=== PATIENT | female | born 1935 | race Caucasian/White ===

== ENCOUNTER 2019-02-10 08:52 | Day surgery (SDC) | payer MEDICARE ==
[~2019-02-10] VITALS: Ht 167.6 cm; Wt 52.5 kg
[2019-02-10] VITALS (13 sets, daily range): BP systolic 142–190; BP diastolic 62–109
[~2019-02-10 08:52] MED LIST: GUAI120015 PO
[2019-02-10] MEDS ORDERED: diphenhydrAMINE 25mg capsule PO PRN (09:25)
[2019-02-10] MEDS ORDERED: normal saline 1,000 ML IV SCH (09:25)
[2019-02-10] MEDS ORDERED: NITR0.4T48 SL (09:29)
[2019-02-10] MEDS ORDERED: CLOP75TA15 PO (09:29)
[2019-02-10] MEDS ORDERED: ASPI-1265 PO (09:29)
[2019-02-10] MEDS ORDERED: METF500T PO (09:29)
[2019-02-10] MEDS ORDERED: LISI-600 PO (09:31)
[2019-02-10] MEDS ORDERED: PRAV40TA3 PO (09:31)
[2019-02-10] MEDS ORDERED: HYDR12.5 PO (09:31)
[2019-02-10 10:15] LABS: BASOPHILS # (AUTO) 0.1 X10'3 (0-0.2); BASOPHILS % (AUTO) 1.2 % (0-1); EOSINOPHILS # (AUTO) 0.3 X10'3 (0-0.9); EOSINOPHILS % (AUTO) 4.2 % (0-6); HEMOGLOBIN 13.9 g/dl (12.0-16.0); LYMPHOCYTES # (AUTO) 1.6 X10'3 (1.1-4.8); LYMPHOCYTES % (AUTO) 21.6 % (21-51); MEAN CORPUSCULAR HEMOGLOBIN 31.2 PG (27.0-31.0); MEAN CORPUSCULAR VOLUME 91.8 FL (78-98); MEAN PLATELET VOLUME 7.4 FL (7.4-10.4); MONOCYTES # (AUTO) 0.6 X10'3 (0-0.9); MONOCYTES % (AUTO) 8.3 % (2-12); NEUTROPHILS # (AUTO) 4.8 X10'3 (1.8-7.7); NEUTROPHILS % (AUTO) 64.7 % (42-75); PLATELET COUNT 369 X10'3 (140-440); RED BLOOD COUNT 4.47 X10'6 (4.20-5.60); RED CELL DISTRIBUTION WIDTH 13.1 % (11.5-14.5); WHITE BLOOD COUNT 7.5 X10'3 (4.5-11.0)
[2019-02-10 10:24] LABS: ALBUMIN 4.2 G/DL (3.4-5.0); ANION GAP 9 (8-16); BLOOD UREA NITROGEN 14 MG/DL (7-18); BUN/CREATININE RATIO 18.7 (6.6-38.0); CALCIUM 9.3 MG/DL (8.5-10.1); CHLORIDE 102 MMOL/L (99-107); CREATININE 0.75 MG/DL (0.40-0.90); GLUCOSE 130 MG/DL (70-104); POTASSIUM 3.9 MMOL/L (3.5-5.1); SODIUM 140 MMOL/L (135-145); eGFR 74 ML/MIN
[2019-02-10] MEDS ORDERED: LIDOcaine 1% (10mg/ml)w/preservative injection 20ml MDV ONE (11:36)
[2019-02-10] MEDS ORDERED: midazolam 2 mg/2 ml injection ONE ×2 (11:36→12:53)
[2019-02-10] MEDS ORDERED: iohexol 350MG/ML 100ml bottle IV ONE (11:36)
[2019-02-10] MEDS ORDERED: iohexol 350 MG/ML 50ML vial IV ONE (11:36)
[2019-02-10] MEDS ORDERED: fentaNYL/PF 50MCG/1 ML 2ML syringe ONE (11:36)
[2019-02-10] MEDS ORDERED: heparin 1,000unit/ml 10ml vial 10 ML ONE (12:33)
[2019-02-10] MEDS ORDERED: iohexol 350 MG/1 ML 200ml bottle ONE (12:35)
[2019-02-10] MEDS ORDERED: nitroGLYCERIN-Tridil 50MG/D5W 250 ML IV ONE (12:41)
[2019-02-10] MEDS ORDERED: clopidogrel 300mg tablet ONE (12:54)
[2019-02-10] MEDS ORDERED: proCHLORperazine 10 MG/2 ml inj IV PRN (13:30)
[2019-02-10] MEDS ORDERED: OXAZEpam 15mg capsule PO PRN (13:30)
[2019-02-10] MEDS ORDERED: HYDROcodone/acetaminophen 10/325mg tab PO PRN (13:30)
[2019-02-10] MEDS ORDERED: ondansetron/PF 4mg/2ml inj IV PRN (13:30)
[2019-02-10] MEDS ORDERED: HYDROcodone/acetaminophen 5mg/325mg tablet PO PRN (13:30)
== END 2019-02-10 18:15 | disposition home or self-care (01) ==
LOC: SSTAY O 08:52
PROVIDERS: ATTEND Internal Medicine Cardiovascular Disease
DX: T82.868A Thrombosis due to vascular prosthetic devices, implants and grafts, initial encounter (principal); I25.118 Atherosclerotic heart disease of native coronary artery with other forms of angina pectoris; I25.82 Chronic total occlusion of coronary artery; I10 Essential (primary) hypertension; E78.5 Hyperlipidemia, unspecified; E11.9 Type 2 diabetes mellitus without complications; J45.909 Unspecified asthma, uncomplicated; M19.90 Unspecified osteoarthritis, unspecified site; Z90.49 Acquired absence of other specified parts of digestive tract; Z98.890 Other specified postprocedural states; Z90.710 Acquired absence of both cervix and uterus; Z79.01 Long term (current) use of anticoagulants; Z79.84 Long term (current) use of oral hypoglycemic drugs; Z79.899 Other long term (current) drug therapy; Z88.0 Allergy status to penicillin; Z88.8 Allergy status to other drugs, medicaments and biological substances; Y83.8 Other surgical procedures as the cause of abnormal reaction of the patient, or of later complication, without mention of misadventure at the time of the procedure; Y92.89 Other specified places as the place of occurrence of the external cause
CPT/HCPCS: 36415; 80048; 83735; 85025; 85610; 93005; 93459; 99152; 99153; C1725; C1760; C1769; C1874; C1894; C9600; C9601; J1644; J2001; J2250; J3010; J7030; Q0163; Q9967; A4620; A6258; J3490

== ENCOUNTER 2023-10-07 20:20 | Emergency (ER) | payer MEDICARE ==
[~2023-10-07] VITALS: Ht 149.9 cm; Wt 53.4 kg
[~2023-10-07 20:20] MED LIST changes: +ASPI-1265 PO; +CLOP75TA15 PO; -GUAI120015 PO; +HYDR12.5 PO; +LISI20TA28 PO; +METF500T PO; +NITR0.4T51 SL; +PANT-47 PO; +PRAV40TA3 PO
[2023-10-07 20:41] VITALS: BP 110/57; PULSE 74; RESP 16; TEMP 97.5; O2SAT 95
[2023-10-07 21:13] LABS: BASOPHILS # (AUTO) 0.1 X10'3 (0-0.2); BASOPHILS % (AUTO) 0.8 % (0-1); EOSINOPHILS # (AUTO) 0.3 X10'3 (0-0.9); EOSINOPHILS % (AUTO) 3.2 % (0-6); HEMATOCRIT 35.6 % (35.0-45.0); HEMOGLOBIN 11.9 g/dl (12.0-16.0); LYMPHOCYTES # (AUTO) 1.9 X10'3 (1.1-4.8); LYMPHOCYTES % (AUTO) 23.5 % (21-51); MEAN CORPUSCULAR HEMOGLOBIN 31.1 PG (27.0-31.0); MEAN CORPUSCULAR HGB CONC 33.5 g/dL (33.0-36.5); MEAN PLATELET VOLUME 7.3 FL (7.4-10.4); MONOCYTES # (AUTO) 0.6 X10'3 (0-0.9); MONOCYTES % (AUTO) 8.1 % (2-12); NEUTROPHILS # (AUTO) 5.2 X10'3 (1.8-7.7); NEUTROPHILS % (AUTO) 64.4 % (42-75); PLATELET COUNT 353 X10'3 (140-440); RED BLOOD COUNT 3.82 X10'6 (4.20-5.60); RED CELL DISTRIBUTION WIDTH 13.8 % (11.5-14.5)
[2023-10-07 21:36] LABS: ALBUMIN 3.8 G/DL (3.4-5.0); ANION GAP 12 (8-16); BLOOD UREA NITROGEN 15 MG/DL (7-18); BUN/CREATININE RATIO 13.4 (10.0-20.0); CALCIUM 8.7 MG/DL (8.5-10.1); CHLORIDE 105 MMOL/L (99-107); CREATININE 1.12 MG/DL (0.40-0.90); GLUCOSE 234 MG/DL (70-104); POTASSIUM 3.9 MMOL/L (3.5-5.1); PRO BRAIN NATRIURETIC PEPTIDE 473 PG/ML (0-450); SODIUM 141 MMOL/L (135-145); TOTAL CARBON DIOXIDE 24.5 MMOL/L (24-32); eCRCL 25 ML/MIN; eGFR 46 ML/MIN
== END 2023-10-08 00:17 | disposition left against medical advice (07) ==
LOC: ER 20:21
DX: R53.1 Weakness (principal); R55 Syncope and collapse; R19.7 Diarrhea, unspecified; Z53.21 Procedure and treatment not carried out due to patient leaving prior to being seen by health care provider
CPT/HCPCS: 36415; 71045; 80048; 82948; 83880; 84484; 85025; 93005